=== PATIENT | female | born 1955 | race Caucasian/White ===

== ENCOUNTER → 2019-06-16 | Outpatient (CLI) | payer BC ==
[2015-03-19 10:15] VITALS: BP 125/71
[~2019-06-16] MED LIST: CALC667C6 PO; CELE200C PO; CELE400C PO; CETI10TA22 PO; CHOL2000 PO; CYAN-25 PO; FLUT16SP NS; FLUT1DIS3 IH; FLUT1DIS5 IH; LANS30CA66 PO; LEVO100T5 PO; MAGN500C10 PO; MAXAIR INH; MONT10TA49 PO; OMEP40CA5 PO; OXYC1TAB15 PO; RANI-376 PO; REGADENOSON 0.4 MG/5 ML DISP.SYRIN. IV ONE; WARF1POW MC
--- NOTE | 2019-06-16 14:12 | RAD ---
MR#: [id number] Date of Study: 06/16/2019 Ordering Physician: ROSITA MILLS, Referring Physician: GALE SALAS Tech: CARLOS SenaMT APPROVED REPORT Test Type: Pharmacological Stress Nurse/Tech: Davion MEDEROS Test Indications: Back pain radiating to chest, accompanied with dyspnea and diaphoresis. Palpitat ions x 3 months Cardiac History: Hyperlipidemia, HTN Medications: See EMR Medical History: Asthma Resting ECG: SR Resting Heart Rate: 60 bpm Resting Blood Pressure: 127/81mmHg Pretest Chest Pain: No chest pain Nurse/Tech Notes Lungs CTA, Heart tones regular. Pt experienced upper back pain @ 6/10 at recovery time 00:55. This p ain started to disipate in the back and started radiating to the front, at recovery time 04:55 @ a 5/ 10 on the pain scale. Pt was having frequent PVCs at this time. Pt was nauseated, diaphoretic, and mi ving dyspnea during time of back and chest pain. Pt's chest pain decreased to at 0/10 3min. after austin t completion. The pt explained 'this is what happens at home, then I have to sit in my chair with a fan on me for about an hour'. Consent: The procedure was explained to the patient in lay terms. Informed consent was witnessed. Martell eout was entered into [employer]. History and Stress Test performed by RT Alycia (R) (N) Pharm. Details Pharmacologic stress testing was performed using 0.4mg per 5ml of regadenoson given intravenously ove r 7-10 seconds. Stress Symptoms See Nurse notes. Dyspnea, Back pain, Chest pain, Diaphoresis. POST EXERCISE Reason for Termination: Infusion complete Max HR: 107 bpm Max Blood Pressure: 149/84mmHg Chest Pain: Yes. Arrhythmia: Yes. frequent PVCs ST Change: No. INTERPRETATION Stress EKG Conclusion: Abnormal EKG response with PVC's in recovery. Imaging Protocol IMAGE PROTOCOL: Rest Tc-99m/stress Tc-99m 1 day Rest: Stress: Viability: Radiopharm.Tc99m HzuvhktprEa55c Sestamibi Brwe46fFd 33mCi Duration 15min. 10min. Img Date 06/16/2019 06/16/2019 Inj-Img Zpyt32xbk. 60min. Rest Admin Site:IV - Right AntecubitalAdministrator: LELAND Mahmood, ARRT (R)(N) Stress Admin Site: IV - Right AntecubitalAdministrator: Elbert Talley, RT (R)(N) STRESS DATA End Diast. Vol.66.0mlAv. Heart Rate83.0bpm End Syst. Vol.11.0mlCO Index BSA0.0L/min Myocardial Mnaj780.0gEject. Imuyekzq85.0% Stress Rates Pk. Fill Rate3.13EDV/secLVtime Pk. Fill 91.94msec Pk. Empty Rate5.51ESV/secLVtime Pk. Qtwjo973.87msec 10/27 Pk. Fill2.07EDV/sec Stress Scores Regional WT0.00Summed WT1.00 Regional WM0.00Summed WM0.00 The rest and stress images show normal perfusion, normal contraction and thickening. LV Perf. Quant 17 Seg. SSS0.00 17 Seg. SRS7.00 17 Seg. SDS0.00 Stress Defect Extent (% LAD)0.00Rest Defect Extent (% LAD)0.60Rev. Defect Extent (% LAD)0.00 Stress Defect Extent (% LCX) 0.00Rest Defect Extent (% LCX)16.30Rev. Defect Extent (% LCX)0.00 Stress Defect Extent (% RCA)0.00Rest Defect Extent (% RCA)5.60Rev. Defect Extent (% RCA)0.00 Stress Defect Extent (% AYDEE)0.00Rest Defect Extent (% AYDEE)10.70Rev. Defect Extent (% AYDEE)0.00 Other Information Quality:Good Risk Assessment: Low Risk Conclusion 1. Mildly abnormal EKG with pvc's in recovery. 2. Normal perfusion at stress/rest. 3. Low risk study. 4. EF > 60%. Signed by : Mamadou Gilman, Electronically Approved : 06/16/2019 14:12:33
== END | disposition home or self-care (01) ==
LOC: NM 09:30
PROVIDERS: ATTEND Internal Medicine Cardiovascular Disease
DX: I49.3 Ventricular premature depolarization (principal); I10 Essential (primary) hypertension; E78.5 Hyperlipidemia, unspecified; J45.909 Unspecified asthma, uncomplicated; Z88.5 Allergy status to narcotic agent; Z91.040 Latex allergy status; Z88.0 Allergy status to penicillin; Z88.8 Allergy status to other drugs, medicaments and biological substances
CPT/HCPCS: 78452; 93017; A9500; J2785

== ENCOUNTER → 2019-07-17 | Outpatient (CLI) | payer BC ==
[2015-03-19 10:15] VITALS: BP 125/71
[~2019-07-17] MED LIST changes: -REGADENOSON 0.4 MG/5 ML DISP.SYRIN. IV ONE
--- NOTE | 2019-07-17 10:31 | CARD ---
MR#: [id number] Date of Study: 07/17/2019 Ordering Physician: ROSITA MILLS, Referring Physician: ROSITA MILLS, Tech: Allie Irby RDCS APPROVED REPORT EXAM: Two-dimensional and M-mode echocardiogram with Doppler and color Doppler. Other Information Quality : Good INDICATION Dyspnea 2D DIMENSIONS RVDd2.7 (2.9-3.5cm)Left Atrium(2D)3.3 (1.6-4.0cm) IVSd1.0 (0.7-1.1cm)Aortic Root(2D)3.2 (2.0-3.7cm) LVDd5.2 (3.9-5.9cm)LVOT Diameter2.0 (1.8-2.4cm) PWd1.0 (0.7-1.1cm)LVDs2.9 (2.5-4.0cm) FS (%) 43.4 %SV95.5 ml LVEF(%)60.0 (>50%) Aortic Valve AoV Peak Vicente.128.3cm/sAoV VTI29.3cm AO Peak GR.6.6mmHgLVOT Peak Vicente.94.1cm/s LVOT VTI 23.81cmAO Mean GR.3mmHg CYNDEE (VMAX)2.07ez1THI (VTI)2.57cm2 Mitral Valve MV E Mtgsnjqu31.9cm/sMV DECEL KCTW299tu MV A Cpmtmbbk79.9cm/sMV KAR26rq E/A Ratio1.8MVA (PHT)4.22cm2 TDI E/Lateral E'24.0E/Medial E'34.6 Tricuspid Valve TR P. Qihydvqs839gp/sRAP GITPXYJP3nzYy TR Peak Gr.89zbShFGYZ88biYs Pulmonary Vein S1 Aqdbaekj52.2cm/sD2 Pvsemfih36.1cm/s LEFT VENTRICLE The left ventricle is normal size. There is normal left ventricular wall thickness. The left ventricu lar systolic function is normal. The Ejection Fraction is 55-60%. There is normal LV segmental wall m otion. RIGHT VENTRICLE The right ventricle is normal size. The right ventricular systolic function is normal. ATRIA The left atrium size is normal. The right atrium size is normal. The interatrial septum is intact wit h no evidence for an atrial septal defect or patent foramen ovale as noted on 2-D or Doppler imaging. AORTIC VALVE The aortic valve is calcified but opens well. Doppler and Color Flow revealed no significant aortic r egurgitation. There is no significant aortic valvular stenosis. MITRAL VALVE The mitral valve is calcified but opens well. Mitral annular calcification is mild. There is no evide nce of mitral valve prolapse. There is no mitral valve stenosis. Doppler and Color-flow revealed trac e mitral regurgitation. TRICUSPID VALVE The tricuspid valve is normal in structure and function. Doppler and Color Flow revealed trace tricus pid regurgitation. The PA pressure was estimated at 22 mmHg. There is no tricuspid valve stenosis. PULMONIC VALVE The pulmonic valve is not well visualized. Doppler and Color Flow revealed no pulmonic valvular regur gitation. There is no pulmonic valvular stenosis. GREAT VESSELS The aortic root is normal in size. The ascending aorta is normal in size. The IVC is normal in size a nd collapses >50% with inspiration. PERICARDIAL EFFUSION There is no evidence of significant pericardial effusion. Critical Notification Critical Value: No <Conclusion> The left ventricular systolic function is normal. The Ejection Fraction is 55-60%. There is normal LV segmental wall motion. Trace mitral regurgitation. Trace tricuspid regurgitation. The PA pressure was estimated at 22 mmHg. There is no evidence of significant pericardial effusion. Signed by : Luis Parrish, Electronically Approved : 07/17/2019 10:30:55
== END | disposition home or self-care (01) ==
LOC: ECHO 09:36
PROVIDERS: ATTEND Internal Medicine Cardiovascular Disease
DX: I08.0 Rheumatic disorders of both mitral and aortic valves (principal)
CPT/HCPCS: 93306